=== PATIENT | male | born 1940 | race Caucasian/White ===

== ENCOUNTER → 2017-01-15 | Outpatient (REF) | payer MEDICARE, OTHER ==
[~2017-01-15] MED LIST: /WARF2TA PO; ALLO100T PO; AMBI5TAB; ASPI325T; BABY81CH; DYAZ37.5; DYAZ37.5 PO; GLUCOSAMINE/CHRONDIT PO; LISI10TA4; LOPR50TA PO; METF500T PO; METOPROLOL; SIMV40TA2; THERGRAN PO; TOPR100T; VIT B COMPLEX; VITA500C PO; VITA50TA12
[2017-01-15 16:56] LABS: ANION GAP 6 MEQ/L (8-16); BLOOD UREA NITROGEN 21 MG/DL (7-18); CALCIUM LEVEL 9.5 MG/DL (8.8-10.2); CARBON DIOXIDE LEVEL 35 MEQ/L (21-32); CHLORIDE LEVEL 98 MEQ/L (98-107); CREATININE FOR GFR 1.12 MG/DL (0.70-1.30); GLOMERULAR FILTRATION RATE > 60.0 (>42); GLUCOSE, FASTING 91 MG/DL (83-110); POTASSIUM SERUM 4.7 MEQ/L (3.5-5.1); SODIUM LEVEL 139 MEQ/L (136-145)
== END ==
LOC: M SFHCPLAZ 12:20
PROVIDERS: ATTEND Family Medicine
DX: I50.23 Acute on chronic systolic (congestive) heart failure (principal); R68.89 Other general symptoms and signs

== ENCOUNTER → 2017-01-15 | Outpatient (CLI) | payer MEDICARE, BC, OTHER ==
--- NOTE | 2017-01-15 15:14 | REP ---
CHEST X-RAY: Two views. HISTORY: Shortness of breath. Status post three heart valve operations. Difficulty breathing. Comparison chest x-ray July 21, 2015. FINDINGS: The patient is status post median sternotomy. There are three visible separate valvular replacements. Median sternotomy wires are seen along with a unipolar pacemaker in the right heart via the left side. Left hemidiaphragm is somewhat elevated and there appears to be left pleural effusion. Small right pleural effusion is seen. The lungs are hyperinflated. An aortic stent graft is seen in the upper abdominal aorta. Pulmonary vasculature is not increased. IMPRESSION: New elevation left hemidiaphragm with small new left pleural effusion and small right pleural effusion. Cardiomegaly. Status post median sternotomy and valvular replacement surgery. Pacemaker in place. Signed by Fabrice Neil MD 01/15/2017 04:44 P
== END ==
LOC: M RAD 13:24
PROVIDERS: ATTEND Family Medicine
DX: J90 Pleural effusion, not elsewhere classified (principal); I51.7 Cardiomegaly; Z95.2 Presence of prosthetic heart valve; Z95.0 Presence of cardiac pacemaker; R06.02 Shortness of breath; Z98.890 Other specified postprocedural states; I50.23 Acute on chronic systolic (congestive) heart failure; R68.89 Other general symptoms and signs
CPT/HCPCS: 36415; 71020; 80048; 84443; G0463

== ENCOUNTER → 2017-03-08 | Outpatient (CLI) | payer MEDICARE, OTHER ==
--- NOTE | 2017-03-08 10:43 | REP ---
PA and lateral chest: Comparison is 01/15/2017. I suspect bilateral pleural effusions. There is cardiomegaly, unchanged. Sternotomy wires and three cardiac valve replacements are again noted. There is a pacemaker, unchanged. There is focal increased radiodensity in the left upper lobe which could be from a loculated pleural effusion or from the left upper lobe infiltrate. CT might be considered for further evaluation. The right upper lobe is clear. Impression: Bilateral pleural effusions. Increased radiodensity in the left upper lobe as described. Pacemaker, sternotomy wires, cardiomegaly and three cardiac valve replacements. Signed by Edward Garcia MD 03/08/2017 10:34 A
== END ==
LOC: M RAD 09:54
PROVIDERS: ATTEND Family Medicine
DX: J96.11 Chronic respiratory failure with hypoxia (principal); J90 Pleural effusion, not elsewhere classified; Z95.0 Presence of cardiac pacemaker
CPT/HCPCS: 71020; 80048; 83880; G0463

== ENCOUNTER → 2017-03-08 | Outpatient (REF) | payer MEDICARE, OTHER ==
[2017-03-08 12:01] LABS: ANION GAP 4 MEQ/L (8-16); BLOOD UREA NITROGEN 16 MG/DL (7-18); CALCIUM LEVEL 9.6 MG/DL (8.8-10.2); CARBON DIOXIDE LEVEL 39 MEQ/L (21-32); CHLORIDE LEVEL 97 MEQ/L (98-107); CREATININE FOR GFR 0.96 MG/DL (0.70-1.30); GLOMERULAR FILTRATION RATE > 60.0 (>42); GLUCOSE, FASTING 105 MG/DL (83-110); POTASSIUM SERUM 4.3 MEQ/L (3.5-5.1); SODIUM LEVEL 140 MEQ/L (136-145)
== END ==
LOC: M SFHCPLAZ 08:55
PROVIDERS: ATTEND Family Medicine
DX: J96.11 Chronic respiratory failure with hypoxia (principal)

== ENCOUNTER → 2017-03-25 | Outpatient (CLI) | payer MEDICARE, BC, OTHER ==
[~2017-03-25] MED LIST changes: +ISOVUE-370 76% 100ML VIAL (Q9967) As Ordered ONE
--- NOTE | 2017-03-25 18:09 | REP ---
CT CHEST WITH CONTRAST: REASON: Chronic respiratory failure and hypoxia. PRIORS: Chest CT's were reviewed, the latest of which is dated 10/24/2014. CONTRAST: 100 mL [id number]. There is global cardiomegaly status quo in the right pretracheal region. There is no hilar adenopathy. Postop change seen in the anterior mediastinal from previous median sternotomy. There is increased splaying of the anterior junction line with increased soft-tissue density in the anterior mediastinum representing a change from the latest prior exam. There is a small left pleural effusion which has developed since the last exam. The loculated right pleural effusion has resolved. The imaged upper abdomen shows air density in the biliary tree unchanged from the prior exam which extends into the common bile duct also unchanged. There is no change in the imaged osseous structures. Evaluation of the lung fortune show asymmetric densities bilaterally and throughout some improved from the prior exam, some increased from the prior exam with particular attention seen in the left major fissure which has thickened with new nodular densities. There is an improved asymmetric nodular density in the right middle lobe. Emphysematous changes are seen throughout the lung fortune with evidence of chronic pleural parenchymal fibrotic changes in the lung bases. There is a new patchy left lower lobe opacity seen in conjunction with the new left pleural effusion. IMPRESSION: 1. New abnormal lung fortune findings as described above. Malignancy can not be ruled out. PET CT recommended. 2. New left pleural effusion. 3. Unchanged pneumobilia. 4. Unchanged adenopathy. 5. Other findings as described above. Signed by Ventura Padilla DO 03/26/2017 01:58 P
== END ==
LOC: M RAD 13:10
PROVIDERS: ATTEND Family Medicine
DX: J96.11 Chronic respiratory failure with hypoxia (principal); J90 Pleural effusion, not elsewhere classified; R59.9 Enlarged lymph nodes, unspecified
CPT/HCPCS: 71260; Q9967

== ENCOUNTER → 2017-03-29 | Outpatient (REF) | payer MEDICARE, OTHER ==
[~2017-03-29] MED LIST changes: -ISOVUE-370 76% 100ML VIAL (Q9967) As Ordered ONE
[2017-03-29 15:48] LABS: BASO % 0.6 % (0.0-1.0); EOS # 0.1 K/mm3 (0.0-0.50); EOS % 2.2 % (0.0-3.0); LARGE UNSTAINED CELL # 0.1 K/mm3 (0.0-0.4); LARGE UNSTAINED CELL % 1.6 % (0.0-4.0); LYMPH # 0.7 K/mm3 (1.5-4.5); LYMPH % 10.4 % (24.0-44.0); MEAN CORPUSCULAR HEMOGLOBIN 32.4 pg (27.0-33.0); MEAN CORPUSCULAR HGB CONC 31.3 g/dl (32.0-36.5); MEAN CORPUSCULAR VOLUME 103.4 fl (80.0-96.0); MONO # 0.4 K/mm3 (0.0-0.8); MONO % 6.6 % (0.0-5.0); NEUTROPHILS # 4.5 K/mm3 (1.8-7.7); NEUTROPHILS % 78.7 % (36.0-66.0); PLATELET COUNT, AUTOMATED 190 k/mm3 (150-450); RED CELL DISTRIBUTION WIDTH 17.8 % (11.5-14.5); WHITE BLOOD COUNT 5.7 K/mm3 (4.0-10.0)
[2017-03-29 16:13] LABS: PERCENT SATURATION 84.1 % (19.7-37.4)
== END ==
LOC: M SFHCPLAZ 14:06
PROVIDERS: ATTEND Family Medicine
DX: I50.42 Chronic combined systolic (congestive) and diastolic (congestive) heart failure (principal); R43.2 Parageusia; Z79.899 Other long term (current) drug therapy; R63.0 Anorexia; K59.00 Constipation, unspecified
CPT/HCPCS: 36415; 83550; 83880; 84443; 84630; 85025; G0463

== ENCOUNTER → 2017-08-27 | Outpatient (CLI) | payer MEDICARE, BC, OTHER ==
[~2017-08-27] MED LIST changes: +ALBU17IN INH; +ASPI1TAB15 PO; +BREO1INH3 INH; +CHLO25TA PO; +COLA100C5 PO; +ENOX80IN3; +LASI40TA PO; +LISI2.5T3 PO; +METF-699 PO; -METF500T PO; +METF500T13 PO; +MIRT30TA3 PO; +PATIENT COMMENT; +SPIR1CAP INH; +SPIR50TA2 PO; +WARF-20 PO; +ZINC50TA PO; +ZYLO300T4 PO
--- NOTE | 2017-08-27 15:47 | REP ---
CHEST, TWO VIEWS: HISTORY: Shortness of breath. COMPARISON: 03/08/2017. An increase in interstitial markings is present in the lungs consistent with chronic interstitial change. There is blunting of the costophrenic angles due to small pleural effusions or pleural thickening. The cardiac silhouette is enlarged. The pulmonary vasculature is normal in appearance. The bony structure is intact. Heart valves and a pacemaker are present. IMPRESSION: 1. Chronic interstitial fibrosis. 2. Small bilateral pleural effusions or pleural thickening. 3. Cardiomegaly. Signed by Severino Atkinson MD 08/27/2017 03:53 P
[2017-08-27 17:08] LABS: BASO % 0.2 % (0.0-1.0); EOS # 0.1 10^3/uL (0.0-0.50); EOS % 2.3 % (0.0-3.0); IMMATURE GRANULOCYTE % 0.6 % (0-0); LYMPH # 0.4 10^3/uL (1.5-4.5); LYMPH % 9.1 % (24.0-44.0); MEAN CORPUSCULAR HGB CONC 30.3 g/dl (32.0-36.5); MEAN CORPUSCULAR VOLUME 98.8 fl (80.0-96.0); MONO # 0.4 10^3/uL (0.0-0.8); MONO % 7.6 % (0.0-5.0); NEUTROPHILS # 3.9 10^3/uL (1.8-7.7); NEUTROPHILS % 80.2 % (36.0-66.0); PLATELET COUNT, AUTOMATED 152 10^3/uL (150-450); RED CELL DISTRIBUTION WIDTH 16.2 % (11.5-14.5); WHITE BLOOD COUNT 4.9 10^3/uL (4.0-10.0)
[2017-08-27 17:12] LABS: CALCIUM LEVEL 9.2 MG/DL (8.8-10.2); CREATININE FOR GFR 1.5 MG/DL (0.70-1.30); GLOMERULAR FILTRATION RATE 48.3 (>42); POTASSIUM SERUM 4.2 MEQ/L (3.5-5.1)
== END ==
LOC: M WUC 13:33
PROVIDERS: ATTEND Family Medicine
DX: R06.02 Shortness of breath (principal); I50.42 Chronic combined systolic (congestive) and diastolic (congestive) heart failure; J90 Pleural effusion, not elsewhere classified; I51.7 Cardiomegaly

== ENCOUNTER 2017-08-29 11:58 | Inpatient (IN) | payer MEDICARE, BC, OTHER ==
[~2017-08-29] VITALS: Ht 182.9 cm; Wt 81.1 kg
[2017-08-29] MEDS: TIOTROPIUM INHALER/CAPSULE (SPIRIVA) INH SCH (08:00)
[~2017-08-29 11:58] MED LIST changes: -ALBU17IN INH; -ASPI1TAB15 PO; -BREO1INH3 INH; -CHLO25TA PO; -COLA100C5 PO; -ENOX80IN3; -LASI40TA PO; -LISI2.5T3 PO; -METF-699 PO; -MIRT30TA3 PO; -PATIENT COMMENT; -SPIR1CAP INH; -SPIR50TA2 PO; -WARF-20 PO; -ZINC50TA PO; -ZYLO300T4 PO
[2017-08-29] MEDS ORDERED: LISI2.5T3 PO (12:15)
[2017-08-29] MEDS ORDERED: SPIR1CAP INH (12:15)
[2017-08-29] MEDS ORDERED: ENOX80IN3 (12:15)
[2017-08-29] MEDS ORDERED: LASI40TA PO (12:15)
[2017-08-29] MEDS ORDERED: BREO1INH3 INH (12:15)
[2017-08-29] MEDS ORDERED: SPIR50TA2 PO (12:15)
[2017-08-29] MEDS: NS 1,000 ML IV ONE ×2 (12:45→13:38)
[2017-08-29 13:30] LABS: BLASTS POS FLAG; INR 3.45; MEAN CORPUSCULAR HEMOGLOBIN 30.4 pg (27.0-33.0); MEAN CORPUSCULAR HGB CONC 31.1 g/dl (32.0-36.5); MEAN CORPUSCULAR VOLUME 97.7 fl (80.0-96.0); PLATELET COUNT, AUTOMATED 185 10^3/uL (150-450); RED CELL DISTRIBUTION WIDTH 16.5 % (11.5-14.5)
[2017-08-29 13:34] LABS: ADD MANUAL DIFFER YES; DIFF SLIDE NUMBER 274
[2017-08-29 13:42] LABS: ALKALINE PHOSPHATASE 94 U/L (45-117); ALT/SGPT 21 U/L (12-78); ANION GAP 5 MEQ/L (8-16); AST/SGOT 18 U/L (15-37); BILIRUBIN,TOTAL 0.6 MG/DL (0.2-1.0); BLOOD UREA NITROGEN 21 MG/DL (7-18); CALCIUM LEVEL 9.9 MG/DL (8.8-10.2); CARBON DIOXIDE LEVEL 34 MEQ/L (21-32); CHLORIDE LEVEL 98 MEQ/L (98-107); CREATININE FOR GFR 1.27 MG/DL (0.70-1.30); GLOMERULAR FILTRATION RATE 58.5 (>42); GLUCOSE, FASTING 95 MG/DL (83-110); POTASSIUM SERUM 4.1 MEQ/L (3.5-5.1); SODIUM LEVEL 137 MEQ/L (136-145)
[2017-08-29 13:43] LABS: ALBUMIN 3.3 GM/DL (3.2-5.2); ALBUMIN/GLOBULIN RATIO 0.72 (1.00-1.93); BILIRUBIN,DIRECT 0.2 MG/DL (0.0-0.2); TOTAL PROTEIN 7.9 GM/DL (6.4-8.2)
--- NOTE | 2017-08-29 13:51 | REP ---
Abdomen series: Three views. History: Abdominal pain. Comparison study: August 27, 2017. Findings: Upright chest radiograph demonstrates moderate cardiomegaly. The patient status post aortic valve replacement via sternotomy. A unipolar pacemaker is seen in the right heart as before. Oxygen delivery tubing is seen. There is no evidence of free subdiaphragmatic air. Chronic pleuroparenchymal changes are seen in the bases and there is blunting of the pleural angles bilaterally unchanged. Suspect small bilateral effusions. No new infiltrate. Supine and erect views of the abdomen demonstrate that the patient is status post aortobi-iliac stent graft placement and bilateral hip arthroplasties. Vascular calcification and prostate calcifications are seen. The bowel gas pattern is normal. No significant air fluid level is seen. Air and stool seen in a normal caliber proximal and distal colon. Impression: No acute abdominal abnormality. Status post aorta bi-iliac stent graft and bilateral hip arthroplasties. Status post aortic valve replacement with moderate cardiomegaly, suspect small bilateral pleural effusions unchanged. Signed by Fabrice Neil MD 08/29/2017 05:10 P
[2017-08-29] MEDS ORDERED: diphenhydrAMINE INJ 50MG/ML VIAL (J1200) IV STA (14:21)
[2017-08-29 14:28] LABS: ANISOCYTOSIS 1+; EOSINOPHILS 1 % (0-5)
[2017-08-29 14:29] LABS: POLYCHROMASIA 1+
[2017-08-29] MEDS ORDERED: METF-699 PO (15:36)
[2017-08-29] MEDS ORDERED: ZYLO300T4 PO (15:36)
[2017-08-29] MEDS ORDERED: MIRT30TA3 PO (15:36)
[2017-08-29] MEDS ORDERED: PATIENT COMMENT (15:36)
[2017-08-29] MEDS ORDERED: ALBU17IN INH (15:36)
[2017-08-29] MEDS ORDERED: WARF-20 PO (15:36)
[2017-08-29] MEDS: WARFARIN SOD 5 MG TAB PO SCH (17:00)
--- NOTE | 2017-08-29 17:09 | HPEPDOC ---
General Date of Admission Aug 29, 2017 Primary Care Physician: ERICA SYED MD Chief Complaint The patient is a 77-year-old male admitted with a reason for visit of anemia History of Present Illness This is a pleasant 77 year old male with a PMH of an abdominal aneurysm who is presenting at the ED for low hemoglobin. The patient is accompanied with his this afternoon. The patient states he came to the ER on the advice of his PCP, Dr. Syed. The patient states for the past three weeks his INR levels have been slowly going down. His last INR outpatient was with Dr. Syed yesterday recorded at 4.1. The patient states that Dr. Syed called in yesterday and told him to come to the ER this morning his hemoglobin was low and he is unsure of the number. Patient states that he is not having lightheadedness or dizziness. He does admit having shortness of breath occurring since November 2016 status post aortic valve replacement, mitral valve replacement and tricuspid valve repair. Patient states he is currently oxygen dependent every single day he uses about 4-6 mL depending on what activity he is doing. Even at night he uses oxygen. Stasis and occurring for the last 2-3 months. Before that he was previously on 1.5-2 L of oxygen. The patient states that he does have some chest pressure when he is ambulating with his oxygen but relieved after he sits down for a short period of time. Denies any sharp shooting pain anywhere. Patient does have a history of peripheral artery disease and COPD from tobacco abuse of 94 pack years. Patient also admits sometimes he has episodes of neon flickering lights in front of his eyes when his oxygen gets too low. But it only occurs for a few minutes. Patient sees Dr. Veliz for his COPD and pulmonary management. Patient sees Dr. Jiménez in [place] for his abdominal aneurysm who did his surgery repair in June 2016. Patient states the last time he had an anemic episode was in 2003. He was transfused 2 bags at that time. He currently takes 10 mg of Coumadin daily but his dosages has been changing the last couple weeks because of his inconsistent INR values. He is taking the Coumadin for his prosthetic aortic valve. Patient at this time states he has lost about 30 pounds since his November surgery. He states it was intentional because he had a decreased appetite since then. He was recently restarted on his Lasix this past Saturday, August 23 he has gained a significant amount of weight due to fluid. Home Medications Scheduled Allopurinol (Zyloprim) 300 Mg Tab, 300 MG PO DAILY, (Reported) Ascorbic Acid (Vitamin C) 500 Mg Chw, 500 MG PO DAILY, (Reported) Aspirin (Aspirin) 81 Mg Tab, 81 MG PO DAILY, (Reported) Chlorthalidone (Chlorthalidone) 25 Mg Tab, 25 MG PO DAILY, (Reported) Docusate Sodium (Colace) 100 Mg Cap, 100 MG PO DAILY, (Reported) Fluticasone/Vilanterol (Breo Ellipta 200-25 Mcg/INH) 1 Inh Inh, 1 INH INH DAILY, (Reported) TAKES MIDDAY Lisinopril (Lisinopril) 2.5 Mg Tab, 2.5 MG PO DAILY, (Reported) Metformin Hydrochloride (Metformin HCl ER) 500 Mg Tab, 500 MG PO DAILY, ( Reported) Multivitamins (Theragran) 1 Tab Tab, 1 TAB PO DAILY, (Reported) Spironolactone (Spironolactone) 50 Mg Tab, 25 MG PO DAILY, (Reported) Tiotropium Ventura Monohydrate (Spiriva Handihaler) 18 Mcg Cap, 18 MCG INH DAILY , (Reported) TAKES MIDDAY Warfarin Sod (Warfarin Sodium) 4 Mg Tab, 10 MG PO QHS, (Reported) Zinc (Zinc) 50 Mg Tab, 50 MG PO DAILY, (Reported) Scheduled PRN Albuterol Sulfate (Ventolin Hfa) 200 Puff/8 Gm Aers, 2 PUFF INH Q4H PRN for SHORTNESS OF BREATH, (Reported) Allergies Coded Allergies: Penicillins (Verified Allergy, Mild, SWELLING, 08/29/17) Penicillins Cross Reactors (Verified Allergy, Mild, SWELLING, 08/29/17) Past Medical History Medical History 1. Abdominal aneurysm 2. diabetes 3. hypertension 4. Atrial fibrillation 5.mild to moderate 6.pulmonary hypertension 7.history of a left deep venous thrombosis 8. Status post aortic valve replacement 2 first one prosthetic in 2001 second one was in 2011 and was a mechanical valve 9. Multiple skin carcinomas Surgical History Excisions of skin cancer Heart valve replacement 11/2000 Left hip replacement 2004 Right hip replacement 2006 [facility] [facility] Valve 2011 AAA Repair 2016 R Lung mass biopsy 2014 Aortic valve replacement, mitral valve replacement, tricuspid valve repair November 2016 No prior colonoscopy Social History * Smoker: quit less than 1 year (Smoked 1.5 pack per day for 63 years, quit in November 2016) Alcohol: occationally (1-2 beers daily, occasional whiskey) Drugs: denies Review of Symptoms Constitutional: Reports: Weakness (Worsens when oxygen is low (knees buckle)), Fatigue (Has had progressively decreasing stamina), Weight Loss (Lost 60 pounds after Nov 2016 surgery, gained 30 pounds back as of last week (stopped taking fluid pill 3 w ago, PCP put him back on it last Saturday)), Other (Admits to feeling cold d/t Warfarin), Denies: Chills, Fever Eyes: Reports: Vision change (History of cataracts) ENT: Reports: Other Symptoms (Hearing loss), Denies: Head Aches, Dysphagia, Sinus Congestion, Sore Throat, Epistaxis Skin: Reports: Bruising, Denies: Rash, Lesions Pulmonary: Reports: Dyspnea, Denies: Cough Cardiovascular: Reports: Edema, Other Symptoms (Chest "tightness" with activity , goes away with rest within 1-2 minutes), Denies: Chest Pain, Orthopnea, Paroxysmal Noc. Dyspnea Gastrointestinal: Reports: Constipation, Denies: Nausea, Vomiting, Abdominal Pain, Diarrhea Genitourinary: Denies: Dysuria Hematologic: Reports: Bruising Endocrine: Reports: Cold Intolerance Neurological: Reports: Other Symptoms (Tingling in feet for a few years), Denies: Weakness, Numbness Physical Examination General Exam: Positive: Alert, Cooperative, No Acute Distress ENT Exam: Positive: Other ENT (nasal cannula around the nares) Neck Exam: Negative: JVD Chest Exam: Positive: Diminished (diminished lung sounds with bifascicular crackles appreciated.) Heart Exam: Positive: Irregular Rhythm, Other (nice mechanical click can be heard on examination on the second right and left intercostal spaces.) Telemetry: Positive: Atrial fibrillation Abdomen Exam: Positive: Normal bowel sounds, Soft, Negative: Tenderness, Mass Extremity Exam: Positive: Edema (1+ pitting edema appreciated bilaterally.), Other (dermis stasis bilaterally of the lower extremities.) Neuro Exam: Positive: Normal Speech Psych Exam: Positive: Mental status NL Vital Signs Vital Signs Date Time Temp Pulse Resp B/P (MAP) Pulse Ox O2 Delivery O2 Flow Rate FiO2 08/29/17 13:35 08/29/17 11:58 98.9 80 16 98 Nasal Cannula 4.0 Laboratory Data Labs 24H Laboratory Tests 2 08/29/17 13:03: Nucleated Red Blood Cells % (auto) 0.0, Neutrophils 72, Lymphocytes (Manual) 24 , Monocytes (Manual) 2, Eosinophils (Manual) 1, Atypical Lymphocytes 1, Platelet Estimate NORMAL, Polychromasia 1+, Anisocytosis 1+, Macrocytosis 1+, Prothrombin Time 36.4H, Prothromb Time International Ratio 3.45, Anion Gap 5L, Glomerular Filtration Rate 58.5, Calcium Level 9.9, Aspartate Amino Transf (AST/ SGOT) 18, Alanine Aminotransferase (ALT/SGPT) 21, Alkaline Phosphatase 94, Total Bilirubin 0.6, Direct Bilirubin 0.2, Total Protein 7.9, Albumin 3.3, Albumin/Globulin Ratio 0.72L, Lipase 111 CBC/BMP Laboratory Tests 08/29/17 13:03 Red Blood Count 2.57 L, Mean Corpuscular Volume 97.7 H, Mean Corpuscular Hemoglobin 30.4, Mean Corpuscular Hemoglobin Concent 31.1 L, Red Cell Distribution Width 16.5 H Assessment/Plan 1. Anemia. Current hemoglobin on admission was 7.8. Patient's baseline is usually around 11, patient will get transfused 2 units of blood today. This anemia might be Likely due to microcytic anemia, hemolysis anemia or metaplastic anemia. Patient is currently taking iron supplementation at home We will do a thorough anemia workup at this time as the patient's history of prosthetic valve, abdominal aneurysm and iron deficiency anemia. In the ER the patient's stool occult was negative. We'll get absolute reticulocyte count, CBC , CMP, bilirubin, haptoglobin, iron/TIBC, ferritin. Patient has never had a colonoscopy done, we will recommend the patient to get a colonoscopy outpatient if one is not done inpatient. 2. Shortness of Breath. Likely due to congestive heart versus patient underlying COPD we'll continue the patient with oxygen therapy while inpatient and give him Lasix Lasix 40 mg IV daily and will get a echo to assess the patient's ejection fraction. 3. INR. Patient's INR on admission was 3.4. Patient is currently on Coumadin 10 mg daily we'll continue with this because patient's therapeutic level is 2.5- 3.5. We'll continue to monitor daily with coagulation profile. 4. HTN. Patient's blood pressure on admission has been stable. we'll continue with lisinopril and spirolactone. 5. Diabetes. We'll hold on patient's metformin while inpatient and place him on an insulin sliding scale 6. COPD. we'll continue patient on his Brio and Spiriva while inpatient 7. History of CKD. Creatinine on admission was 1.27 we'll continue to monitor with daily BMPs. 8. History of aortic and mitral valve replacement, tricuspid repair. 9. Gout. We'll continue with allopurinol while inpatient. We'll continue to monitor creatinine while inpatient to monitor for kidney injury. 10. History of Venous insufficiency. 11. History of Moderate PHTN. 12. History abdominal aneurysm repair in June 2016. 13. DVT Prophylaxis. Continue with Warfarin with supratherapeutic INR levels between 2.5-3.5. Plan / VTE VTE Prophylaxis Ordered?: Yes (continue with Coumadin) GME ATTESTATION GME ATTESTATION My preceptor for this patient encounter was physically present in the building during the encounter and was fully available. As needed, all aspects of the patient interview, examination, medical decision making process, and medical care plan development were reviewed and approved by the preceptor. Preceptor is aware and concurs with the plan as stated in the body of this note and will attest to such by his/her cosignature. ATTENDING NOTE I, Chance Mccray, have both independently examined this patient as well as reviewed the documentation. I have discussed in detail with the resident the findings and plan of treatment as documented in the residents documentation. I will continue to follow the patient and offer further guidance to the patients care as necessary during this hospital stay. JANAE JAMES DO Aug 29, 2017 14:57 CHANCE MCCRAY MD Sep 15, 2017 18:08
[2017-08-29] MEDS ORDERED: FUROSEMIDE 40 MG/4 ML VIAL (J1940) IV ONE (17:15)
[2017-08-29] MEDS ORDERED: ALBUTEROL 90 MCG/ACT 8GM HFA INHALER INH PRN (17:15)
[2017-08-29 17:20] LABS: RETIC HEMOGLOBIN EQUIVALENT 28.9 pg (24-36); RETICULOCYTE % 2.6 % (0.5-1.5)
[2017-08-29 17:56] VITALS: BP 143/63
[2017-08-29 17:57] LABS: FERRITIN 67 NG/ML (26-388)
[2017-08-29 18:15] LABS: VITAMIN B12 LEVEL 942 PG/ML
[2017-08-29 18:16] LABS: FOLATE > 24.0 NG/ML
[2017-08-29 18:36] LABS: ANION GAP 4 MEQ/L (8-16); BLOOD UREA NITROGEN 19 MG/DL (7-18); CALCIUM LEVEL 8.9 MG/DL (8.8-10.2); CARBON DIOXIDE LEVEL 34 MEQ/L (21-32); CHLORIDE LEVEL 100 MEQ/L (98-107); GLOMERULAR FILTRATION RATE > 60.0 (>42); GLUCOSE, FASTING 87 MG/DL (83-110); POTASSIUM SERUM 4.3 MEQ/L (3.5-5.1); SODIUM LEVEL 138 MEQ/L (136-145)
[2017-08-29 19:30] VITALS: BP 125/60
[2017-08-29] MEDS: MIRTAZAPINE 15 MG TAB PO SCH (19:44)
[2017-08-29] MEDS ORDERED: DEXTROSE 50% 50 ML SYRINGE IV PRN (21:00)
[2017-08-29] MEDS ORDERED: GLUCAGON FOR INJ 1 MG VIAL (J1610) SC PRN (21:00)
[2017-08-29] MEDS: HumaLOG INSULIN (NovoLOG) PER UNIT SC SCH (21:00)
[2017-08-29] MEDS ORDERED: GLUCOSE 4 GM CHEW TABLET PO PRN (21:00)
[2017-08-29 21:39] LABS: MEAN CORPUSCULAR HEMOGLOBIN 30.3 pg (27.0-33.0); MEAN CORPUSCULAR HGB CONC 31.9 g/dl (32.0-36.5); MEAN CORPUSCULAR VOLUME 94.9 fl (80.0-96.0); RED CELL DISTRIBUTION WIDTH 16.3 % (11.5-14.5); WHITE BLOOD COUNT 5.7 10^3/uL (4.0-10.0)
[2017-08-29 21:56] LABS: CALCIUM LEVEL 9.5 MG/DL (8.8-10.2); CREATININE FOR GFR 1.28 MG/DL (0.70-1.30)
[2017-08-30] VITALS: BP 105/57
[2017-08-30 04:00] VITALS: BP 131/63
[2017-08-30 04:59] LABS: MEAN CORPUSCULAR HEMOGLOBIN 29.3 pg (27.0-33.0); MEAN CORPUSCULAR VOLUME 94.6 fl (80.0-96.0); RED CELL DISTRIBUTION WIDTH 16.3 % (11.5-14.5); WHITE BLOOD COUNT 5.7 10^3/uL (4.0-10.0)
[2017-08-30 05:14] LABS: INR 3.13
[2017-08-30 05:24] LABS: ALBUMIN 2.7 GM/DL (3.2-5.2); ALBUMIN/GLOBULIN RATIO 0.66 (1.00-1.93); ALKALINE PHOSPHATASE 76 U/L (45-117); ALT/SGPT 17 U/L (12-78); ANION GAP 5 MEQ/L (8-16); AST/SGOT 15 U/L (15-37); BLOOD UREA NITROGEN 18 MG/DL (7-18); CARBON DIOXIDE LEVEL 34 MEQ/L (21-32); CHLORIDE LEVEL 98 MEQ/L (98-107); CREATININE FOR GFR 1.12 MG/DL (0.70-1.30); GLOMERULAR FILTRATION RATE > 60.0 (>42); GLUCOSE, FASTING 78 MG/DL (83-110); MAGNESIUM LEVEL 1.5 MG/DL (1.8-2.4); SODIUM LEVEL 137 MEQ/L (136-145); TOTAL PROTEIN 6.8 GM/DL (6.4-8.2)
[2017-08-30] MEDS: HumaLOG INSULIN (NovoLOG) PER UNIT SC SCH ×4 (07:30→21:00)
[2017-08-30 08:00] VITALS: BP 121/59
[2017-08-30] MEDS: MAG SULF 1GM/100ML (MAG RUN) 1 GM in APPROPRIATE DILUENT 1 EA IV SCH ×2 (08:00→08:40)
[2017-08-30] MEDS: TIOTROPIUM INHALER/CAPSULE (SPIRIVA) INH SCH (08:00)
[2017-08-30] MEDS: LISINOPRIL *2.5 MG* TAB PO SCH (08:40)
[2017-08-30] MEDS: FUROSEMIDE 40 MG/4 ML VIAL (J1940) IV SCH (08:40)
[2017-08-30] MEDS: SPIRONOLACTONE 50 MG TAB PO SCH (08:46)
[2017-08-30] MEDS: ALLOPURINOL 300 MG TAB PO SCH (08:47)
--- NOTE | 2017-08-30 09:15 | IPNPDOC ---
Subjective Date Seen The patient was seen on 08/30/17. Subjective Chief Complaint/HPI The patient is a 77-year-old male admitted with a reason for visit of Anemia. Events since last encounter The patient was seen and examined this morning at bedside. Patient does not look like in any acute distress. Patient wished to go home today his states his breathing is exactly the same. He doesn't complain of lightheadedness, dizziness , nausea, vomiting, constipation or diarrhea. Patient says he has an appetite he eats and feels a little weak. Per nursing patient had no overnight events. Constitutional: Denies: Chills, Fever, Malaise ENT: Denies: Head Aches Pulmonary: Denies: Dyspnea, Cough Cardiovascular: Denies: Chest Pain Gastrointestinal: Denies: Nausea, Vomiting, Abdominal Pain, Diarrhea Neurological: Reports: Weakness Objective Physical Examination General Exam: Positive: Alert, Cooperative, No Acute Distress ENT Exam: Positive: Other ENT (nasal cannula around the nares) Neck Exam: Negative: JVD Chest Exam: Positive: Diminished (diminished lung sounds with bibasiliar crackles appreciated (still present)) Heart Exam: Positive: Irregular Rhythm, Other (nice mechanical click can be heard on examination on the second right and left intercostal spaces.) Telemetry: Positive: Atrial fibrillation (ventricularly paced.) Abdomen Exam: Positive: Normal bowel sounds, Soft, Negative: Tenderness, Mass Extremity Exam: Positive: Edema (1+ pitting edema appreciated bilaterally. ( improving but still present)), Other (dermis stasis bilaterally of the lower extremities.) Neuro Exam: Positive: Normal Speech Psych Exam: Positive: Mental status NL Assessment /Plan Assessment 1. Anemia. Status post 2 blood transfusion on 08/29. Current hemoglobin this morning was 8.1. Patient is asymptomatic. We will do a thorough anemia workup at this time as the patient's history of prosthetic valve, abdominal aneurysm and iron deficiency anemia. In the ER the patient's stool occult was negative. Percent reticulocyte were adequate at 2.6. Iron panel was negative. Total bili and direct bili were within normal limits. This is likely due to the fact the patient is having intravascular hemolysis due to prosthetic valve but still can' t rule out GI bleed. Currently waiting for haptoglobin. Patient has never had a colonoscopy done, we will recommend the patient to get a colonoscopy outpatient, really not warranted for inpatient because the patient is asymptomatic. Will continue to monitor with daily H/H. 2. Shortness of Breath (chronic). Likely due to congestive heart versus patient underlying COPD. currently stating at 96% with 4 L of nasal cannula. we'll continue the patient with oxygen therapy while inpatient and give him Lasix 40 mg IV daily. Currently waiting for an echocardiogram to evaluate the patient's ejection fraction. 3. INR. Patient's INR this morning was 3.1. Continue Coumadin 10 mg daily because patient's therapeutic level is 2.5-3.5. And monitor daily with coagulation profile. 4. HTN. Patient's blood pressure on admission has been stable we'll continue with lisinopril and spirolactone 5. Diabetes. We'll hold on patient's metformin while inpatient and place him on an insulin sliding scale. 6. COPD. we'll continue patient on his Briel and Spiriva while inpatient 7. History of CKD. Creatinine on admission was 1.12 we'll continue to monitor with daily BMPs. 8. History of aortic and mitral valve replacement, tricuspid repair. 9. Gout. We'll continue with allopurinol while inpatient. We'll continue to monitor creatinine while inpatient to monitor for kidney injury. 10. History of Venous insufficiency. 11. History of Moderate PHTN. 12. History abdominal aneurysm repair in June 2016. 13. DVT Prophylaxis. Continue with Warfarin with supratherapeutic INR levels between 2.5-3.5. Plan/VTE VTE Prophylaxis Ordered?: Yes (continue with Coumadin) VS, I&O, 24H, Fishbone Vital Signs/I&O Vital Signs Date Time Temp Pulse Resp B/P (MAP) Pulse Ox O2 Delivery O2 Flow Rate FiO2 08/30/17 08:40 121/59 08/30/17 04:00 98.8 67 18 98 Nasal Cannula 3.0 08/29/17 17:56 92 Laboratory Data 24H LABS Laboratory Tests 2 08/29/17 13:03: Reticulocyte # (auto) 65.000, Nucleated Red Blood Cells % (auto) 0.0, Neutrophils 72, Lymphocytes (Manual) 24, Monocytes (Manual) 2, Eosinophils ( Manual) 1, Atypical Lymphocytes 1, Platelet Estimate NORMAL, Polychromasia 1+, Anisocytosis 1+, Macrocytosis 1+, Percent Reticulocyte Count 2.6H, Reticulocyte Hemoglobin Equivalent 28.9, Prothrombin Time 36.4H, Prothromb Time International Ratio 3.45, Anion Gap 5L, Glomerular Filtration Rate 58.5, Calcium Level 9.9, Iron Level 43L, Ferritin 67, Aspartate Amino Transf (AST/SGOT ) 18, Alanine Aminotransferase (ALT/SGPT) 21, Alkaline Phosphatase 94, Total Bilirubin 0.6, Direct Bilirubin 0.2, [id number]-Type Natriuretic Peptide 23284A, Total Protein 7.9, Albumin 3.3, Albumin/Globulin Ratio 0.72L, Lipase 111, Vitamin B12 Level 942, Folate > 24.0 08/29/17 17:57: Anion Gap 4L, Glomerular Filtration Rate > 60.0, Calcium Level 8.9, Blood Urea Nitrogen 19H, Creatinine 1.20, Sodium Level 138, Potassium Level 4.3, Chloride Level 100, Carbon Dioxide Level 34H 08/29/17 21:17: Anion Gap 3L, Glomerular Filtration Rate 58.0, Calcium Level 9.5, Blood Urea Nitrogen 20H, Creatinine 1.28, Sodium Level 137, Potassium Level 4.0, Chloride Level 98, Carbon Dioxide Level 36H 08/29/17 21:19: Nucleated Red Blood Cells % (auto) 0.0 08/30/17 04:30: Nucleated Red Blood Cells % (auto) 0.0, Prothrombin Time 33.6H, Prothromb Time International Ratio 3.13, Anion Gap 5L, Glomerular Filtration Rate > 60.0, Blood Urea Nitrogen 18, Creatinine 1.12, Sodium Level 137, Potassium Level 4.0, Chloride Level 98, Carbon Dioxide Level 34H, Calcium Level 9.0, Aspartate Amino Transf (AST/SGOT) 15, Alanine Aminotransferase (ALT/SGPT) 17, Alkaline Phosphatase 76, Total Bilirubin 1.0#, Total Protein 6.8, Albumin 2.7L, Magnesium Level 1.5L, Albumin/Globulin Ratio 0.66L 08/30/17 08:23: Bedside Glucose (Misc Panel) 87 CBC/BMP Laboratory Tests 08/29/17 13:03 Red Blood Count 2.57 L, Mean Corpuscular Volume 97.7 H, Mean Corpuscular Hemoglobin 30.4, Mean Corpuscular Hemoglobin Concent 31.1 L, Red Cell Distribution Width 16.5 H 08/29/17 17:57 Calcium Level 8.9 08/29/17 21:17 Calcium Level 9.5 08/29/17 21:19 Red Blood Count 2.97 L, Mean Corpuscular Volume 94.9, Mean Corpuscular Hemoglobin 30.3, Mean Corpuscular Hemoglobin Concent 31.9 L, Red Cell Distribution Width 16.3 H 08/30/17 04:30 Red Blood Count 2.76 L, Mean Corpuscular Volume 94.6, Mean Corpuscular Hemoglobin 29.3, Mean Corpuscular Hemoglobin Concent 31.0 L, Red Cell Distribution Width 16.3 H, Calcium Level 9.0, Aspartate Amino Transf (AST/SGOT) 15, Alanine Aminotransferase (ALT/SGPT) 17, Alkaline Phosphatase 76, Total Bilirubin 1.0 #, Total Protein 6.8, Albumin 2.7 L GME ATTESTATION GME ATTESTATION My preceptor for this patient encounter was physically present in the building during the encounter and was fully available. As needed, all aspects of the patient interview, examination, medical decision making process, and medical care plan development were reviewed and approved by the preceptor. Preceptor is aware and concurs with the plan as stated in the body of this note and will attest to such by his/her cosignature. ATTENDING NOTE Attending Note: I have independently examined this patient and all aspects of the exam and treatment decisions have been discussed with the resident. A member of the hospitalist staff will continue to follow this patient through discharge. JANAE JAMES, Aug 30, 2017 09:14 ORALIA SIMON DO Sep 01, 2017 15:00
[2017-08-30] MEDS ORDERED: ZINC50TA PO (10:05)
[2017-08-30] MEDS ORDERED: CHLO25TA PO (10:05)
[2017-08-30] MEDS ORDERED: ASPI1TAB15 PO (10:05)
[2017-08-30] MEDS ORDERED: COLA100C5 PO (10:05)
[2017-08-30 13:10] LABS: CALCIUM LEVEL 9.4 MG/DL (8.8-10.2); CREATININE FOR GFR 1.26 MG/DL (0.70-1.30); GLOMERULAR FILTRATION RATE 59.1 (>42); MAGNESIUM LEVEL 2.2 MG/DL (1.8-2.4); POTASSIUM SERUM 3.9 MEQ/L (3.5-5.1)
[2017-08-30] MEDS: WARFARIN SOD 5 MG TAB PO SCH (16:58)
[2017-08-30 18:45] LABS: CALCIUM LEVEL 9.1 MG/DL (8.8-10.2); CREATININE FOR GFR 1.25 MG/DL (0.70-1.30); GLOMERULAR FILTRATION RATE 59.6 (>42); POTASSIUM SERUM 4.3 MEQ/L (3.5-5.1)
--- NOTE | 2017-08-30 19:18 | ECHO ---
DATE OF PROCEDURE: 08/30/2017 REFERRING PHYSICIAN: Max Craven MD and Chance Mccray MD INDICATION: Edema. HEIGHT: 183 cm WEIGHT: 83 kg DIMENSIONS: IVS: 1.3 LV: 4.8 LVPW: 1.3 LA: 4.9 FINDINGS: The study is of difficult technical quality. Left ventricle is of normal size and overall normal contractility. I estimate ejection fraction (EF) around 50-55%. There is septal wall motion abnormality consistent with pacemaker driven rhythm. Right ventricle appears dilated and hypokinetic. Both atria are severely enlarged. There is an echo artifact in right-sided heart chambers consistent with pacing electrodes. There is a bioprosthesis in aortic position. It was poorly visualized and I cannot comment on its structure. There is mitral bioprosthetic valve. By 2-D imaging, there is a dense calcification apparent in left ventricle most likely in the remnants of mitral chordal apparatus. Tricuspid valve appear normal. Pulmonic valve was not well seen, but grossly appears normal. Trivial noncompressive pericardial effusion is noted. Inferior vena cava is dilated and has no appreciable collapse with respiration, indicative of likely very high central venous pressure. Aortic root appears grossly normal, but was poorly visualized. Aortic arch and abdominal aorta were not well seen. Doppler interrogation of aortic prosthesis reveals peak gradient 22 and mean gradient 15 mmHg. There is trace insufficiency of the valve. Mitral bioprosthesis has no insufficiency. Peak gradient across the valve is 15 and mean gradient 5 mmHg, which likely corresponds to normal values. There is mild tricuspid insufficiency. Calculated pulmonary artery pressure is at least 40 mmHg that would correspond to moderate pulmonary hypertension. Pulmonic valve exhibits trace insufficiency. Evaluation of diastolic function is inconclusive. There is obscuration of mitral inflow due to presence of bioprosthesis. It appears that the patient is in atrial fibrillation with ventricular paced rhythm. Tissue Doppler velocities of mitral annulus though are severely reduced (E prime septal and lateral both 4 cm/s), indicating likely advanced diastolic dysfunction. CONCLUSION: 1. Study is of fair technical quality. 2. Normal left ventricle (LV) size with mild left ventricular hypertrophy (LVH) and grossly preserved LV systolic function. Likely advanced diastolic dysfunction. 3. Bioprosthesis in aortic position with mean gradient 15 mmHg and trace insufficiency. 4. Bioprosthesis in mitral position with mean gradient 5 mmHg and no insufficiency. 5. Very high central venous pressure. 6. At least moderate pulmonary hypertension. 7. Dilated hypokinetic right ventricle. 8. Severe biatrial enlargement. 9. Trivial pericardial effusion. COMMENT: Subacute bacterial endocarditis (SBE) is recommended.
[2017-08-30 20:00] VITALS: BP 129/59
[2017-08-30] MEDS: MIRTAZAPINE 15 MG TAB PO SCH (21:00)
[2017-08-31] VITALS: BP 151/63
[2017-08-31 04:00] VITALS: BP 129/60
[2017-08-31 04:47] LABS: MEAN CORPUSCULAR HEMOGLOBIN 29.1 pg (27.0-33.0); MEAN CORPUSCULAR HGB CONC 30.5 g/dl (32.0-36.5); MEAN CORPUSCULAR VOLUME 95.4 fl (80.0-96.0); PLATELET COUNT, AUTOMATED 137 10^3/uL (150-450); RED CELL DISTRIBUTION WIDTH 16.1 % (11.5-14.5); WHITE BLOOD COUNT 6.1 10^3/uL (4.0-10.0)
[2017-08-31 04:55] LABS: INR 2.59
[2017-08-31 05:06] LABS: ANION GAP 6 MEQ/L (8-16); BLOOD UREA NITROGEN 18 MG/DL (7-18); CALCIUM LEVEL 8.9 MG/DL (8.8-10.2); CARBON DIOXIDE LEVEL 35 MEQ/L (21-32); CHLORIDE LEVEL 97 MEQ/L (98-107); CREATININE FOR GFR 1.16 MG/DL (0.70-1.30); GLOMERULAR FILTRATION RATE > 60.0 (>42); GLUCOSE, FASTING 88 MG/DL (83-110); MAGNESIUM LEVEL 1.7 MG/DL (1.8-2.4); POTASSIUM SERUM 3.9 MEQ/L (3.5-5.1); SODIUM LEVEL 138 MEQ/L (136-145)
[2017-08-31] MEDS ORDERED: MAG SULF 1GM/100ML (MAG RUN) 1 GM in APPROPRIATE DILUENT 1 EA IV ONE (06:45)
[2017-08-31] MEDS: HumaLOG INSULIN (NovoLOG) PER UNIT SC SCH ×2 (07:30→13:00)
[2017-08-31 08:00] VITALS: BP 130/60
[2017-08-31 08:05] VITALS: BP 130/60
[2017-08-31] MEDS: LISINOPRIL *2.5 MG* TAB PO SCH (08:05)
[2017-08-31] MEDS: SPIRONOLACTONE 50 MG TAB PO SCH (08:05)
[2017-08-31] MEDS: ALLOPURINOL 300 MG TAB PO SCH (08:05)
[2017-08-31] MEDS: FUROSEMIDE 40 MG/4 ML VIAL (J1940) IV SCH (08:05)
[2017-08-31] MEDS: NON-FORMULARY COMPOUNDED MEDICATION INH SCH ×2 (08:14→09:00)
[2017-08-31] MEDS: TIOTROPIUM INHALER/CAPSULE (SPIRIVA) INH SCH (08:15)
[2017-08-31 09:45] LABS: REASON FOR REVIEW ANEMIA / RBC MORPH
--- NOTE | 2017-08-31 10:45 | DS.PDOC ---
Discharge Summary General Date of Admission Aug 29, 2017 at 14:56 Date of Discharge 08/31/2017 Primary Care Physician: ERICA SYED MD Discharge Summary PROCEDURES PERFORMED DURING STAY: Echocardiogram 08/30/2017 Impressions 1. Study is of fair technical quality. 2. Normal left ventricle (LV) size with mild left ventricular hypertrophy (LVH) and grossly preserved LV systolic function. Likely advanced diastolic dysfunction. 3. Bioprosthesis in aortic position with mean gradient 15 mmHg and trace insufficiency. 4. Bioprosthesis in mitral position with mean gradient 5 mmHg and no insufficiency. 5. Very high central venous pressure. 6. At least moderate pulmonary hypertension. 7. Dilated hypokinetic right ventricle. 8. Severe biatrial enlargement. 9. Trivial pericardial effusion. ADMITTING DIAGNOSES: 1. Symptomatic anemia 2. Shortness of breath DISCHARGE DIAGNOSES: 1. Anemia 2. Shortness of breath likely due to diastolic congestive heart failure COMPLICATIONS/CHIEF COMPLAINT: Anemia. HISTORY OF PRESENT ILLNESS: This is a pleasant 77 year old male with a PMH of an abdominal aneurysm who is presenting at the ED for low hemoglobin. The patient is accompanied with his this afternoon. The patient states he came to the ER on the advice of his PCP, Dr. Syed. The patient states for the past three weeks his INR levels have been slowly going down. His last INR outpatient was with Dr. Syed yesterday recorded at 4.1. The patient states that Dr. Syed called in yesterday and told him to come to the ER this morning his hemoglobin was low and he is unsure of the number. Patient states that he is not having lightheadedness or dizziness. He does admit having shortness of breath occurring since November 2016 status post aortic valve replacement, mitral valve replacement and tricuspid valve repair. Patient states he is currently oxygen dependent every single day he uses about 4-6 mL depending on what activity he is doing. Even at night he uses oxygen. Stasis and occurring for the last 2-3 months. Before that he was previously on 1.5-2 L of oxygen. The patient states that he does have some chest pressure when he is ambulating with his oxygen but relieved after he sits down for a short period of time. Denies any sharp shooting pain anywhere. Patient does have a history of peripheral artery disease and COPD from tobacco abuse of 94 pack years. Patient also admits sometimes he has episodes of neon flickering lights in front of his eyes when his oxygen gets too low. But it only occurs for a few minutes. Patient sees Dr. Veliz for his COPD and pulmonary management. Patient sees Dr. Jiménez in [place] for his abdominal aneurysm who did his surgery repair in June 2016. Patient states the last time he had an anemic episode was in 2003. He was transfused 2 bags at that time. He currently takes 10 mg of Coumadin daily but his dosages has been changing the last couple weeks because of his inconsistent INR values. He is taking the Coumadin for his prosthetic aortic valve. Patient at this time states he has lost about 30 pounds since his November surgery. He states it was intentional because he had a decreased appetite since then. He was recently restarted on his Lasix this past Saturday, August 23 he has gained a significant amount of weight due to fluid. HOSPITAL COURSE: 1. Anemia. Status post 2 blood transfusion on 08/29. Was admitted to the PCU floor. Patient is asymptomatic after the transfusion. Patient has a history of prosthetic valve, abdominal aneurysm and iron deficiency anemia. In the ER the patient's stool occult was negative. Percent reticulocyte were adequate at 2.6. Iron panel was negative. Total bili and direct bili were within normal limits. This is likely due to the fact the patient is having intravascular hemolysis due to prosthetic valve but still can't rule out GI bleed. Haptoglobin was less than 10. Peripheral smear is currently pending pathology review for RBC morphology. Patient has never had a colonoscopy done, we will recommend the patient to get a colonoscopy outpatient, really not warranted for inpatient because the patient is asymptomatic. Hemoglobin stable at 8.2 2. Shortness of Breath (chronic). Likely due to congestive heart versus patient underlying COPD. currently stating at 96% with 4 L of nasal cannula. we'll continue the patient with oxygen therapy while inpatient and give him Lasix 40 mg IV daily. Echocardiogram showed Normal left ventricle (LV) size with mild left ventricular hypertrophy (LVH) and grossly preserved LV systolic function, likely advanced diastolic dysfunction. At least moderate pulmonary hypertension. Dilated hypokinetic right ventricle. Severe biatrial enlargement. 3. INR. Patient's INR this morning was 3.1. Continue Coumadin 10 mg daily because patient's therapeutic level is 2.5-3.5. And monitor daily with coagulation profile. 4. HTN. Patient's blood pressure on admission has been stable we'll continue with lisinopril and spirolactone 5. Diabetes. We'll hold on patient's metformin while inpatient and place him on an insulin sliding scale. 6. COPD. we'll continue patient on his Breo and Spiriva while inpatient 7. History of CKD. Creatinine was stable the whole admission 1.12-1.26 8. Gout. We'll continue with allopurinol while inpatient. We'll continue to monitor creatinine while inpatient to monitor for kidney injury. 9. DVT Prophylaxis. Continue with Warfarin with supratherapeutic INR levels between 2.5-3.5. DISCHARGE MEDICATIONS: Please see below. ALLERGIES: Please see below. PHYSICAL EXAMINATION ON DISCHARGE: VITAL SIGNS: Please see below. General Exam: Positive: Alert, Cooperative, No Acute Distress ENT Exam: Positive: Other ENT (nasal cannula around the nares) Neck Exam: Negative: JVD Chest Exam: Positive: Diminished (diminished lung sounds ) Heart Exam: Positive: Irregular Rhythm, Other (nice mechanical click can be heard on examination on the second right and left intercostal spaces.) Telemetry: Positive: Atrial fibrillation (ventricular paced.) Abdomen Exam: Positive: Normal bowel sounds, Soft, Negative: Tenderness, Mass Extremity Exam: Positive: dermis stasis bilaterally of the lower extremities. Pitting Edema improved Neuro Exam: Positive: Normal Speech Psych Exam: Positive: Mental status NL LABORATORY DATA: Please see below. IMAGING: Abdomen x-ray on 08/29/2017 Impression: No acute abdominal abnormality. Status post aorta bi-iliac stent graft and bilateral hip arthroplasties. Status post aortic valve replacement with moderate cardiomegaly, suspect small bilateral pleural effusions unchanged. Echocardiogram 08/30/2017 Impressions 1. Study is of fair technical quality. 2. Normal left ventricle (LV) size with mild left ventricular hypertrophy (LVH) and grossly preserved LV systolic function. Likely advanced diastolic dysfunction. 3. Bioprosthesis in aortic position with mean gradient 15 mmHg and trace insufficiency. 4. Bioprosthesis in mitral position with mean gradient 5 mmHg and no insufficiency. 5. Very high central venous pressure. 6. At least moderate pulmonary hypertension. 7. Dilated hypokinetic right ventricle. 8. Severe biatrial enlargement. 9. Trivial pericardial effusion. ACTIVITY: As tolerated. DIET: Low-sodium diet with a 1800 fluid restriction DISCHARGE PLAN: 1. Anemia. Status post 2 blood transfusion on 08/29. Patient has a history of prosthetic valve, abdominal aneurysm and iron deficiency anemia. stool occult was negative. Percent reticulocyte were adequate at 2.6. Iron panel was negative. Total bili and direct bili were within normal limits. This is likely due to the fact the patient is having intravascular hemolysis due to prosthetic valve but still can't rule out GI bleed. Haptoglobin was less than 10. Peripheral smear is currently pending pathology review for RBC morphology. Hemoglobin stable at 8.2 on day of discharge. Patient has never had a colonoscopy done, we will recommend the patient to get a colonoscopy outpatient, really not warranted for inpatient because the patient is asymptomatic currently. 2. Shortness of Breath (chronic). Likely due to congestive heart versus patient underlying COPD. currently stating at 96% with 4 L of nasal cannula. we'll continue the patient with oxygen therapy while inpatient and give him Lasix 40 mg IV daily. Echocardiogram showed Normal left ventricle (LV) size with mild left ventricular hypertrophy (LVH) and grossly preserved LV systolic function, likely advanced diastolic dysfunction. At least moderate pulmonary hypertension. Dilated hypokinetic right ventricle. Severe biatrial enlargement. Patient currently is stable; crackles in the lungs have improved. Patient will be discharged on his home medication and to follow-up with PCP in 3-7 days 3. INR. Patient's INR this morning was 2.59. Continue Coumadin 10 mg daily because patient's therapeutic level is 2.5-3.5. Patient is to continue his Coumadin. 4. HTN. Patient's blood pressure on admission has been stable patient is to continue with lisinopril and spirolactone 5. Diabetes. Patient is to continue with metformin upon discharge 6. COPD. in today with his home medications 7. Gout. Continue with his allopurinol DISCHARGE INSTRUCTIONS: 1.Follow-up with PCP in 3-7 days 2.Diet 2 g sodium diet with a 1800 fluid extraction ITEMS TO FOLLOWUP ON ON OUTPATIENT: 1.Follow-up with PCP in 3-7 days 2.Diet 2 g sodium diet with a 1800 fluid extraction DISCHARGE CONDITION: Stable. TIME SPENT ON DISCHARGE: Greater than 35 minutes. Vital Signs/I&Os Vital Signs Date Time Temp Pulse Resp B/P (MAP) Pulse Ox O2 Delivery O2 Flow Rate FiO2 08/31/17 08:05 130/60 1014/17 08:00 98.7 75 22 96 Nasal Cannula 3.0 08/29/17 17:56 92 I&O- Last 24 Hours up to 6 AM 09/01/17 06:00 Output Total 300 ml Balance -300 ml Laboratory Data Labs 24H Laboratory Tests 2 08/30/17 12:04: Anion Gap 3L, Glomerular Filtration Rate 59.1, Blood Urea Nitrogen 18, Creatinine 1.26, Sodium Level 136, Potassium Level 3.9, Chloride Level 97L, Carbon Dioxide Level 36H, Calcium Level 9.4, Magnesium Level 2.2 08/30/17 12:14: Bedside Glucose (Misc Panel) 181H 08/30/17 16:28: Bedside Glucose (Misc Panel) 154H 08/30/17 17:49: Anion Gap 4L, Glomerular Filtration Rate 59.6, Blood Urea Nitrogen 19H, Creatinine 1.25, Sodium Level 138, Potassium Level 4.3, Chloride Level 97L, Carbon Dioxide Level 37H, Calcium Level 9.1, Iron Level 27L, Total Iron Binding Capacity 299, Transferrin % Saturation 9.0L 08/30/17 21:00: Bedside Glucose (Misc Panel) 117H 08/31/17 04:25: Nucleated Red Blood Cells % (auto) 0.0, Differential Slide Review Report, Differential Pathologist's Review ANEMIA / RBC MORPH, Peripheral Blood Smear Path Consult PERIPHERAL SMEAR, Prothrombin Time 28.8H, Prothromb Time International Ratio 2.59, Anion Gap 6L, Glomerular Filtration Rate > 60.0, Blood Urea Nitrogen 18, Creatinine 1.16, Sodium Level 138, Potassium Level 3.9, Chloride Level 97L, Carbon Dioxide Level 35H, Calcium Level 8.9, Magnesium Level 1.7L, Lactate Dehydrogenase 255H 08/31/17 09:49: CBC/BMP Laboratory Tests 08/30/17 12:04 Calcium Level 9.4 08/30/17 17:49 Calcium Level 9.1 08/31/17 04:25 Calcium Level 8.9, Red Blood Count 2.82 L, Mean Corpuscular Volume 95.4, Mean Corpuscular Hemoglobin 29.1, Mean Corpuscular Hemoglobin Concent 30.5 L, Red Cell Distribution Width 16.1 H FSBS Laboratory Tests Test 08/30/17 12:14 08/30/17 16:28 10/13/17 21:00 Range/Units Bedside Glucose (Misc Panel) 181 154 117 83-110 MG/DL Discharge Medications Scheduled Allopurinol (Zyloprim) 300 Mg Tab, 300 MG PO DAILY, (Reported) Ascorbic Acid (Vitamin C) 500 Mg Chw, 500 MG PO DAILY, (Reported) Aspirin (Aspirin) 81 Mg Tab, 81 MG PO DAILY, (Reported) Chlorthalidone (Chlorthalidone) 25 Mg Tab, 25 MG PO DAILY, (Reported) Docusate Sodium (Colace) 100 Mg Cap, 100 MG PO DAILY, (Reported) Fluticasone/Vilanterol (Breo Ellipta 200-25 Mcg/INH) 1 Inh Inh, 1 INH INH DAILY, (Reported) TAKES MIDDAY Lisinopril (Lisinopril) 2.5 Mg Tab, 2.5 MG PO DAILY, (Reported) Metformin Hydrochloride (Metformin HCl ER) 500 Mg Tab, 500 MG PO DAILY, ( Reported) Multivitamins (Theragran) 1 Tab Tab, 1 TAB PO DAILY, (Reported) Spironolactone (Spironolactone) 50 Mg Tab, 25 MG PO DAILY, (Reported) Tiotropium [place] Monohydrate (Spiriva Handihaler) 18 Mcg Cap, 18 MCG INH DAILY , (Reported) TAKES MIDDAY Warfarin Sod (Warfarin Sodium) 4 Mg Tab, 10 MG PO QHS, (Reported) Zinc (Zinc) 50 Mg Tab, 50 MG PO DAILY, (Reported) Scheduled PRN Albuterol Sulfate (Ventolin Hfa) 200 Puff/8 Gm Aers, 2 PUFF INH Q4H PRN for SHORTNESS OF BREATH, (Reported) Allergies Coded Allergies: Penicillins (Verified Allergy, Mild, SWELLING, 08/29/17) Penicillins Cross Reactors (Verified Allergy, Mild, SWELLING, 08/29/17) GME ATTESTATION GME ATTESTATION My preceptor for this patient encounter was physically present in the building during the encounter and was fully available. As needed, all aspects of the patient interview, examination, medical decision making process, and medical care plan development were reviewed and approved by the preceptor. Preceptor is aware and concurs with the plan as stated in the body of this note and will attest to such by his/her cosignature. ATTENDING NOTE Attending Note: I have independently examined this patient and all aspects of the exam and treatment decisions have been discussed with the resident. A member of the hospitalist staff will continue to follow this patient through discharge. JANAE JAMES, Aug 31, 2017 10:24 ORALIA SIMON DO Sep 01, 2017 15:17
--- NOTE | 2017-09-02 05:57 | ECGEPIP ---
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
== END 2017-08-31 13:12 | disposition home or self-care (01) | DRG 812 ==
LOC: M ED 11:58 → M ED INP 14:56 → M ICU 17:34
PROVIDERS: ADMIT Internal Medicine; ATTEND Hospitalist
PROC: 30253N1 (ICD-10-PCS; principal; 2017-08-29)
DX: D64.9 Anemia, unspecified (principal); I13.0 Hypertensive heart and chronic kidney disease with heart failure and stage 1 through stage 4 chronic kidney disease, or unspecified chronic kidney disease; I50.32 Chronic diastolic (congestive) heart failure; E11.22 Type 2 diabetes mellitus with diabetic chronic kidney disease; I48.91 Unspecified atrial fibrillation; I27.20 Pulmonary hypertension, unspecified; M10.9 Gout, unspecified; I87.2 Venous insufficiency (chronic) (peripheral); N18.9 Chronic kidney disease, unspecified; Z95.2 Presence of prosthetic heart valve; Z85.828 Personal history of other malignant neoplasm of skin; Z86.718 Personal history of other venous thrombosis and embolism; Z88.0 Allergy status to penicillin; Z79.01 Long term (current) use of anticoagulants; Z79.899 Other long term (current) drug therapy; Z96.643 Presence of artificial hip joint, bilateral; Z87.891 Personal history of nicotine dependence

== ENCOUNTER → 2017-10-18 | Outpatient (REF) | payer MEDICARE, OTHER ==
[~2017-10-18] MED LIST changes: +ALBU17IN INH; +ASPI1TAB15 PO; +BREO1INH3 INH; +CHLO25TA PO; +COLA100C5 PO; +ENOX80IN3; +LASI40TA PO; +LISI2.5T3 PO; +METF-699 PO; +MIRT30TA3 PO; +PATIENT COMMENT; +SPIR1CAP INH; +SPIR50TA2 PO; +WARF-20 PO; +ZINC50TA PO; +ZYLO300T4 PO
[2017-10-18 14:24] LABS: RETIC HEMOGLOBIN EQUIVALENT 27.3 pg (24-36); RETICULOCYTE % 3.6 % (0.5-1.5)
[2017-10-18 15:08] LABS: FERRITIN 71 NG/ML (26-388); PERCENT SATURATION 10.6 % (19.7-50.0); TOTAL IRON BINDING CAPACITY 322 UG/DL (250-450); TOTAL PROTEIN 7.5 GM/DL (6.4-8.2)
[2017-10-21 14:05] LABS: ALBUMIN 3.83 GM/DL (3.29-5.55); GAMMA GLOBULIN % 22.9 % (11.1-18.8)
== END ==
LOC: M LAB REF 13:40
PROVIDERS: ATTEND Internal Medicine Medical Oncology
DX: D64.9 Anemia, unspecified (principal)

== ENCOUNTER 2017-10-23 09:49 | Outpatient (CLI) | payer MEDICARE, BC, OTHER ==
[2017-10-23] MEDS ORDERED: diphenhydrAMINE 25 MG CAP PO ONE (10:15)
--- NOTE | 2017-10-23 10:55 | REP ---
Chest two views HISTORY: Shortness of breath Comparison: 08/29/2017 An increase in interstitial markings is present in the lower lobes consistent with chronic interstitial change. Small bilateral pleural effusions are present. The cardiac silhouette is enlarged. The pulmonary vasculature is prominent. The bony structure is intact. A cardiac pacemaker and heart valves are present. IMPRESSION: 1. Bibasilar chronic interstitial fibrosis. 2. Small bilateral pleural effusions. 3. Cardiomegaly. Signed by Severino Atkinson MD 10/23/2017 10:47 A
[2017-10-23] MEDS ORDERED: WARF-20 PO (11:22)
== END 2017-10-23 15:00 | disposition home or self-care (01) ==
LOC: M INFU 09:49
PROVIDERS: ATTEND Family Medicine
DX: D59.4 Other nonautoimmune hemolytic anemias (principal); R06.02 Shortness of breath; I50.42 Chronic combined systolic (congestive) and diastolic (congestive) heart failure; I27.20 Pulmonary hypertension, unspecified; E61.1 Iron deficiency; I11.0 Hypertensive heart disease with heart failure; E78.00 Pure hypercholesterolemia, unspecified; J44.9 Chronic obstructive pulmonary disease, unspecified; Z95.2 Presence of prosthetic heart valve; Z79.82 Long term (current) use of aspirin; Z79.899 Other long term (current) drug therapy; Z79.01 Long term (current) use of anticoagulants; Z79.84 Long term (current) use of oral hypoglycemic drugs; Z88.0 Allergy status to penicillin; Z87.891 Personal history of nicotine dependence
CPT/HCPCS: 36415; 36430; 71020; 86850; 86900; 86901; 86920; P9016

== ENCOUNTER 2017-10-30 10:36 | Outpatient (CLI) | payer MEDICARE, BC, OTHER ==
[2017-10-30] VITALS (8 sets, daily range): BP systolic 122–145; BP diastolic 56–65
[~2017-10-30] VITALS: Ht 182.9 cm; Wt 80.5 kg
[~2017-10-30 10:36] MED LIST changes: +ACETAMINOPHEN TAB 650MG DOSE (2X325MG) PO SCH; +diphenhydrAMINE 25 MG CAP PO SCH
[2017-10-30] MEDS: FUROSEMIDE 20 MG/2 ML VIAL (J1940) IV SCH ×2 (14:54→17:51)
[2017-10-30] MEDS ORDERED: FUROSEMIDE 20 MG/2 ML VIAL (J1940) As Ordered ONE (17:39)
== END 2017-10-30 18:35 | disposition home or self-care (01) ==
LOC: M OPCLIPED 10:36 → M OPCLI4PR 10:36 → M PED 10:50 → M OPCLIPED 18:35
PROVIDERS: ATTEND Internal Medicine Medical Oncology
DX: D61.818 Other pancytopenia (principal); D59.9 Acquired hemolytic anemia, unspecified; Z88.0 Allergy status to penicillin
CPT/HCPCS: 36430; 86850; 86900; 86901; 86920; 88300; J1940; P9016

== ENCOUNTER → 2017-10-30 | Outpatient (REF) | payer MEDICARE, OTHER ==
[2017-10-30 12:56] LABS: REASON FOR REVIEW COMPREHENSIVE REVIEW
== END ==
LOC: M LAB REF 11:12
PROVIDERS: ATTEND Internal Medicine Medical Oncology
DX: D61.818 Other pancytopenia (principal)

== ENCOUNTER → 2018-01-07 | Outpatient (REF) | payer MEDICARE, BC, OTHER ==
[2018-01-07 14:14] LABS: REASON FOR REVIEW OTHER; SLIDE REVIEW Report; SOURCE PERIPHERAL SMEAR
== END ==
LOC: M LAB REF 13:29
DX: D64.9 Anemia, unspecified (principal)